=== PATIENT | male | born 1960 | race African-American/Black ===

== ENCOUNTER 2021-12-05 19:17 | Observation (INO) | payer OTHER, SELFPAY ==
[2021-12-05] VITALS (18 sets, daily range): BP systolic 91–129; BP diastolic 58–79; PULSE 68–97; RESP 13–23; TEMP 36.5–36.6; O2SAT 97–100; BMI 22.6
--- NOTE | ~2021-12-05 | XR_ITS ---
EXAMINATION: XR chest 1V portable DATE: 12/05/2021 19:34 INDICATION: Cough. TECHNIQUE: A single frontal view of the chest was obtained. COMPARISON: CT abdomen and pelvis 10/23/2018 FINDINGS: There are mild airspace opacities in the mid and lower lung zones. No pleural effusion or p neumothorax. Cardiomegaly is noted. IMPRESSION: 1. Mild airspace opacities in the mid and lower lung zones, consistent with mild pulmonary edema vers us atelectasis versus atypical pneumonia. 2. Cardiomegaly. Reviewed, dictated and finalized at location A. IMPRESSION: 1. Mild airspace opacities in the mid and lower lung zones, consistent with mil d pulmonary edema versus atelectasis versus atypical pneumonia. 2. Cardiomegaly.
--- NOTE | 2021-12-05 19:24 | ECG_ITS ---
Measurements Intervals [place] Rate: 66 P: 44 NV: 149 QRS: -5 QRSD: 102 T: 152 QT: 408 QTc: 429 Interpretive Statements SINUS RHYTHM POSSIBLE LEFT ATRIAL ENLARGEMENT [-0.1mV P-WAVE IN V1/V2] POSSIBLE ANTERIOR MYOCARDIAL INFARCTION , OF INDETERMINATE AGE [30 ms Q WAVE IN V3/V4, OR R < 0.2 mV IN V4] NONSPECIFIC T-WAVE ABNORMALITY ABNORMAL ECG COMPARED TO ECG 06/22/2018 13:14:53 NO SIGNIFICANT CHANGES Electronically Signed On 12-06-2021 9:35:35 CDT by Eben Cespedes M.D.
--- NOTE | 2021-12-05 19:42 | ED.GENADULT ---
HPI - General Adult General Chief complaint: Unspecified Stated complaint: pitting edema from waist down Time Seen by Provider: 12/05/21 19:24 Source: RN notes reviewed History of Present Illness HPI narrative: Patient presents emergency room from home via EMS for edema. Patient states he been having increasing edema in the bilateral lower extremities up to his waist for the past several days. 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 Patient states he was at a hospital yesterday in [place] but was discharged but cannot give any further history as the patient is a poor historian he denies any fevers or chills chest pain shortness of breath or any other symptoms Related Data Allergies Allergy/AdvReac Type Severity Reaction Status Date / Time No Known Allergies Allergy Verified 12/05/21 19:38 Review of Systems Review of Systems: Gen.: Denies fevers or chills ENT: Denies congestion Respiratory: Denies shortness of breath or cough CV: Denies chest pain or palpitations reports edema GI: Denies abdominal pain nausea, emesis or diarrhea Musculoskeletal: Denies back pain or muscle pain Neuro: Denies numbness, tingling, weakness or focal weakness Skin: Denies rash Except as documented, all other systems reviewed and negative PENDING SALE TO [facility] Past Medical History Medical History (Updated 12/05/21 @ 21:31 by Tanvir Arnold DO) CHF (congestive heart failure) Social History Social History (Updated 12/05/21 @ 21:29 by Tanvir Arnold DO) Smoking status: Never smoker Exam Narrative: APPEARANCE: No acute distress, nontoxic, resting in bed EYES: EOMI HEENT: Normocephalic, atraumatic, OMM RESPIRATORY: No respiratory distress Clear to auscultation bilaterally with no rhonchi wheezing or rales. CARDIOVASCULAR: Regular rate and rhythm without murmurs rubs or gallops. ABDOMINAL: Soft, nontender, nondistended, no rebound or guarding : Edema of the penile shaft there is no phimosis or paraphimosis erythema no scrotal erythema MUSCULOSKELETAl: Moves all extremities. No clubbing, cyanosis 4+ edema to bilateral lower extremities NEURO: Awake and alert. Following commands, speech normal, no focal deficits SKIN:: Warm, dry. No rashes lesions or abrasions PSYCHIATRIC: Normal affect/mood, Course Course Emergency Course: Discussed with Dr. Gross presentation work-up agrees with consult Discussed with Dr. Yao agrees with admission Attempted to obtain old records from [place] Discussed with patient and family results of workup and diagnosis. Discussed need for admission. Patient and family understand and agree to current treatment plan Carrying records from [facility] patient been admitted to the hospital from the through the for CHF he has a history of dilated cardiomyopathy also has a history of use of crack cocaine drug screen will be added will admit patient at this time Vital Signs Vital signs: Vital Signs Temperature 97.7 F 12/05/21 19:22 Pulse Rate 71 12/05/21 19:22 Respiratory Rate 13 12/05/21 19:22 Blood Pressure 100/71 12/05/21 19:22 Pulse Oximetry 100 12/05/21 19:22 Oxygen Delivery Room Air 12/05/21 19:22 Temperature 97.7 F 12/05/21 19:22 Pulse Rate 73 12/05/21 19:52 Respiratory Rate 16 12/05/21 19:52 Blood Pressure 106/79 12/05/21 21:02 Pulse Oximetry 99 12/05/21 19:52 Oxygen Delivery Room Air 12/05/21 19:22 Medical Decision Making Vital Signs Vital Signs: Vital Signs Temperature 97.7 F 12/05/21 19:22 Pulse Rate 71 12/05/21 19:22 Respiratory Rate 13 12/05/21 19:22 Blood Pressure 100/71 12/05/21 19:22 Pulse Oximetry 100 12/05/21 19:22 Oxygen Delivery Room Air 12/05/21 19:22 Temperature 97.7 F 12/05/21 19:22 Pulse Rate 73 12/05/21 19:52 Respiratory Rate 16 12/05/21 19:52 Blood Pressure 106/79 12/05/21 21:0
[2021-12-05 19:45] LABS: Basophils Percent Auto 0.3 % (0.2-1.2); Eosinophils Percent Auto 0.2 % (0-4.4); Hematocrit 33.1 % (42.0-52.0); Hemoglobin 10.2 g/dL (14.0-18.0); Immature Granulocyte Absolute 0.02 K/mm3 (0.00-0.031); Immature Granulocyte Percent A 0.3 % (0-0.5); Lymphocytes Absolute Auto 1.31 K/mm3 (0.9-3.2); Lymphocytes Percent Auto 20.5 % (18.3-44.2); Mean Corpuscular HGB Conc 30.8 g/dl (32-36); Mean Corpuscular Hemoglobin 24.9 pg (26-34); Mean Corpuscular Volume 80.9 fl (80-100); Mean Platelet Volume 10.1 fl (7.4-10.4); Monocytes Absolute Auto 0.5 K/mm3 (0.1-0.6); Monocytes Percent Auto 8.3 % (2.6-8.5); Neutrophils Absolute Auto 4.5 K/mm3 (1.3-6.7); Neutrophils Percent Auto 70.4 % (45.5-73.1); Platelet Count Result 222 k/mm3 (150-375); Red Blood Count 4.09 M/mm3 (4.6-6.20); Red Cell Distribution Width 16.1 % (11.5-14.5); White Blood Count 6.4 K/mm3 (4.5-10.0)
[2021-12-05 19:55] LABS: Alanine Aminotransferase 27 U/L (6-50); Albumin Level 3.4 g/dL (3.5-5.1); Alkaline Phosphatase 94 U/L (38-126); Anion Gap 5 mmol/L (8-16); Aspartate Amino Transferase 54 U/L (17-59); Bilirubin,Total 0.5 mg/dL (0.2-1.3); Blood Urea Nitrogen 38 mg/dL (9-20); Calcium 8.2 mg/dL (8.4-10.2); Carbon Dioxide 33 mmol/L (22-30); Chloride 96 mmol/L (98-107); Estimated CRCL calculation 74 ml/min; Estimated Glomerular Filt Rate > 60; Glucose 93 mg/dL (65-110); Potassium 4.3 mmol/L (3.4-5.0); Sodium 134 mmol/L (137-145)
[2021-12-05 19:57] LABS: INR 1.2; Prothrombin Time 15.1 Seconds (11.1-14.7)
[2021-12-05 19:58] LABS: Partial Thromboplastin Time 26.4 SECONDS (22.3-36.8)
[2021-12-05 20:17] LABS: NT Pro B Type Natriuretic Pept 2600 pg/mL (5-100); Troponin I 0.037 ng/mL (0.000-0.034)
[2021-12-05] MEDS: FUROSEMIDE INJ 40 MG/4 ML VIAL IV PUSH (21:20)
[2021-12-05] MEDS: ASPIRIN 81 MG CHEWABLE TABLET 324 MG PO (21:20)
[2021-12-05 22:31] LABS: Amphetamine Screen Urine Negative (Negative); Barbiturate Screen Urine Negative (Negative); Benzodiazepines Screen Urine Negative (Negative); Cannabinoid Screen Urine Positive (Negative); Cocaine Screen Urine Positive (Negative); Methadone Screen Urine Negative (Negative); Opiate Screen Urine Negative (Negative); Phencyclidine Screen Urine Negative (Negative)
[2021-12-05 23:52] LABS: SARS-CoV-2 RNA PCR Negative
--- NOTE | 2021-12-05 23:56 | ADMGEN ---
This patient, Niko Pearson, was admitted to IMU Room 205-02. Patient/family oriented to hospital policies and general routines including ID bracelet, bed and alarms, visiting hours, pain management, procedures, bathroom and other care routines, personal items, smoking policy, room service/diet, and visiting hours. Information on how to activate the Rapid Response Team has been discussed. Patient/Family are encouraged to report perceived risks to care and to ask questions if they do not understand what they are told or what they should do.
[2021-12-06] VITALS (17 sets, daily range): BP systolic 101–119; BP diastolic 50–81; PULSE 56–78; RESP 14–20; TEMP 36.4–36.7; O2SAT 97–100
--- NOTE | 2021-12-06 01:25 | ECHO_ITS ---
Patient Info Name: Niko Cox Michel Age: 61 years : 1960 Gender: Male Ht: 72 in Wt: 167 lbs BSA: 1.96 m2 HR: 62 bpm BP: 101 / 75 mmHg Heart Rhythm: Sinus Rhythm Technical Quality: Good Exam Date: 12/06/2021 1:42 PM Exam Location: [facility] Patient Status: Outpatient Admit Date: 12/05/2021 Staff Ordering Physician: Ricardo Yao DO Commissioning Editor: Peggy Elaine RDCS Attending Provider: Ricardo Yao DO Exam Type: CA echo doppler color flow Study Info Indications I50.9 - Heart failure, unspecified Complete two-dimensional, color flow and Doppler transthoracic echocardiogram is performed. Summary 1. Complete two-dimensional, color flow and Doppler transthoracic echocardiogram is performed. 2. Left ventricular chamber dimension is moderately enlarged. 3. Left ventricular systolic function is severely reduced, estimated at 25-30%. 4. There is no increased left ventricular wall thickness. 5. The left ventricular diastolic function is grade III diastolic dysfunction. 6. The inferior wall, anterior wall, inferoseptal wall, anterolateral wall, anteroseptal wall, and inferolateral wall are hypokinetic. 7. The apical cap is dyskinetic. 8. Right ventricular chamber dimension is mildly enlarged. 9. Right ventricular systolic function is reduced. 10. Left atrial chamber dimension is moderately enlarged. 11. Right atrial chamber dimension is moderately enlarged. 12. There is moderate mitral valve regurgitation. 13. Moderate pulmonary hypertension, estimated pulmonary arterial systolic pressure is 50 mmHg. 14. There is moderate tricuspid valve regurgitation. 15. There is small pericardial effusion. Left Ventricle Left ventricular chamber dimension is moderately enlarged. Left ventricular systolic function is severely reduced, estimated at 25-30%. There is no increased left ventricular wall thickness. The left ventricular diastolic function is grade III diastolic dysfunction. The inferior wall, anterior wall, inferoseptal wall, anterolateral wall, anteroseptal wall, and inferolateral wall are hypokinetic. The apical cap is dyskinetic. Right Ventricle Right ventricular chamber dimension is mildly enlarged. Right ventricular systolic function is reduced. Left Atria Left atrial chamber dimension is moderately enlarged. Right Atria Right atrial chamber dimension is moderately enlarged. Atrial Septum Intact interatrial septum visualized by color flow imaging. Aortic Valve The aortic valve is trileaflet. There is no aortic valve sclerosis. There is no aortic valve stenosis. There is trace aortic valve regurgitation. Pulmonic Valve The pulmonic valve is normal. There is no pulmonic valve stenosis. There is trace pulmonic regurgitation. Mitral Valve The mitral valve has thickened leaflets. There is no mitral valve stenosis. There is moderate mitral valve regurgitation. Tricuspid Valve The tricuspid valve leaflets are normal. There is no significant tricuspid valve stenosis. There is moderate tricuspid valve regurgitation. Moderate pulmonary hypertension, estimated pulmonary arterial systolic pressure is 50 mmHg. Pericardium/Pleural The pericardium appears normal. There is small pericardial effusion. Inferior Vena Cava Dilated inferior vena cava with <50% collapse upon inspiration consistent with elevated right atrial pressure, 15 mmHg. Aorta The aortic root size at the sinus of Valsalva is normal. The prox ascending aorta
[2021-12-06 01:28] LABS: Troponin I 0.039 ng/mL (0.000-0.034)
--- NOTE | 2021-12-06 01:29 | PM.IMHP ---
H&P: [facility] History of Present Illness Date/Time: 12/06/21 01:29 Chief Complaint: Lower extremity edema, dyspnea on exertion Narrative: Greater than 30 minutes spent reviewing chart, evaluating, treating, counseling patient. Anticipate less than 48 hour admission, will admit under observation. 61-year-old male past medical history of cocaine abuse, CHF, Crohn's disease, homelessness. Presents with worsening lower extremity edema for the past week. Patient also reports dyspnea on exertion as well as orthopnea. Patient is unreliable historian, however states he does have CHF and is supposed to be taking Lasix. He states he tries to take his medications regularly, however does miss doses. Of note, patient is homeless and does not follow with the PCP or toe pounder. Patient reports he last used cocaine yesterday. He also reports he ?passed out? this morning while trying to go to the bathroom. States when he came to he was covered in urine and feces. Denies biting his tongue or hitting his head. Does not have a history of seizures. States when he came to he knew where he was and what was going on. Patient denies history of diabetes. In ED, patient's vitals stable. Labs remarkable for initial troponin 0.037 send a BNP of 2600. Patient denies any chest pain. EKG showed normal sinus rhythm, left atrial enlargement, poor R-wave progression. Chest x-ray showing enlarged heart with mild vascular congestion. Other labs remarkable for hemoglobin of 10.2, MCV 80. Patient given dose of IV Lasix 40 mg and aspirin. Review of Systems Review of Systems: Ten point review of systems obtained, negative unless otherwise specified per [facility] Past Medical History Medical History (Updated 12/06/21 @ 01:50 by Ricardo Yao DO) CHF (congestive heart failure) Family History Family History (Updated 12/05/21 @ 23:41 by Thu Her RN) Other Unknown family medical history Social History Social History (Updated 12/05/21 @ 21:29 by Tanvir Arnold DO) Smoking status: Never smoker Second hand tobacco smoke exposure: No Alcohol intake: never Substance use: current Substance use type: marijuana and crack/cocaine Spiritual care concerns: No Meds Home Medications and Allergies Home Medications Medication Instructions Recorded Confirmed Type aspirin 81 mg tablet,delayed 81 mg PO DAILY 12/05/21 12/05/21 History release atorvastatin 40 mg tablet 40 mg PO HS 12/05/21 12/05/21 History carvedilol 25 mg tablet 25 mg PO BID 12/05/21 12/05/21 History empagliflozin 10 mg tablet 10 mg PO DAILY 12/05/21 12/05/21 History (Jardiance) furosemide 20 mg tablet 40 mg PO DAILY 12/05/21 12/05/21 History losartan 50 mg tablet 50 mg PO DAILY 12/05/21 12/05/21 History spironolactone 25 mg tablet 25 mg PO DAILY 12/05/21 12/05/21 History Allergies Allergy/AdvReac Type Severity Reaction Status Date / Time No Known Allergies Allergy Verified 12/05/21 19:38 Vital Signs Vital Signs - 24 hr 12/05/21 19:22 12/05/21 19:37 12/05/21 19:52 Temperature 97.7 F Pulse Rate 71 77 73 Respiratory Rate 13 16 Blood Pressure 100/71 Pulse Oximetry 100 99 Oxygen Delivery Room Air 12/05/21 20:31 12/05/21 21:02 12/05/21 23:03 Temperature Pulse Rate 72 Respiratory Rate 17 Blood Pressure 91/58 L 106/79 97/64 L Pulse Oximetry 100 Oxygen Delivery 12/05/21 21:30 12/05/21 21:31 12/05/21 22:06 Temperature Pulse Rate 71 71 68 Respiratory Rate 14 14 14 Blood Pressure 102/76 Pulse Oximetry 97 97 Oxygen Delivery 12/05/21 22:15 12/05/21 22:30 12/05/21 22:31 Temperature Pulse Rate 69 69 69 Respiratory Rate 15 13 13 Blood Pressure 96/61 L Pulse Oximetry Oxygen Delivery 12/05/21 22:45 12/05/21 23:00 12/05/21 23:01 Temperature Pulse Rate 71 71 76 Respiratory Rate 23 H 13 19 Blood Pressure 97/64 L Pulse Oximetry Oxygen Delivery 12/05/21 23:23 12/05/21 23:45
[2021-12-06 03:32] LABS: Basophils Percent Auto 0.5 % (0.2-1.2); Eosinophils Percent Auto 0.5 % (0-4.4); Hematocrit 32.4 % (42.0-52.0); Hemoglobin 10.1 g/dL (14.0-18.0); Immature Granulocyte Absolute 0.01 K/mm3 (0.00-0.031); Immature Granulocyte Percent A 0.2 % (0-0.5); Lymphocytes Absolute Auto 1.92 K/mm3 (0.9-3.2); Lymphocytes Percent Auto 29.3 % (18.3-44.2); Mean Corpuscular HGB Conc 31.2 g/dl (32-36); Mean Corpuscular Hemoglobin 24.9 pg (26-34); Mean Platelet Volume 9.6 fl (7.4-10.4); Monocytes Absolute Auto 0.5 K/mm3 (0.1-0.6); Monocytes Percent Auto 7.9 % (2.6-8.5); Neutrophils Percent Auto 61.6 % (45.5-73.1); Platelet Count Result 195 k/mm3 (150-375); Red Blood Count 4.05 M/mm3 (4.6-6.20); Red Cell Distribution Width 16.1 % (11.5-14.5); White Blood Count 6.6 K/mm3 (4.5-10.0)
[2021-12-06 03:40] LABS: Hemoglobin A1C 6.1 % (<5.7)
[2021-12-06 03:45] LABS: Anion Gap 6 mmol/L (8-16); Blood Urea Nitrogen 39 mg/dL (9-20); Calcium 8.2 mg/dL (8.4-10.2); Carbon Dioxide 29 mmol/L (22-30); Chloride 96 mmol/L (98-107); Estimated CRCL calculation 74 ml/min; Estimated Glomerular Filt Rate > 60; Glucose 123 mg/dL (65-110); Iron 18 ug/dL (49-181); Potassium 3.8 mmol/L (3.4-5.0); Sodium 131 mmol/L (137-145)
[2021-12-06 03:54] LABS: Percent Iron Saturation 4 % (20-50)
[2021-12-06 04:08] LABS: Troponin I 0.042 ng/mL (0.000-0.034)
[2021-12-06 04:44] LABS: Free T4 Free Thyroxine Reflex 0.84 ng/dL (0.78-2.19)
[2021-12-06 04:52] LABS: Folic Acid 11.9 ng/mL (2.76->20)
[2021-12-06 05:48] LABS: Total Triiodothyronine (T3) 0.65 NG/ML (0.97-1.69)
[2021-12-06] MEDS: ASPIRIN 81 MG CHEWABLE TABLET PO (09:23)
[2021-12-06] MEDS: ENOXAPARIN 40 MG/0.4 ML SYRINGE SUB-Q (09:24)
[2021-12-06] MEDS: FUROSEMIDE INJ 40 MG/4 ML VIAL IV PUSH ×2 (09:24→17:28)
--- NOTE | 2021-12-06 11:41 | PM.CNCAR ---
Assessment and Plan Assessment and plan (1) Elevated troponin: Code(s): R77.8 - Other specified abnormalities of plasma proteins Status: Acute Assessment and Plan: Probably secondary to combination of heart failure and cocaine use (2) CHF (congestive heart failure): Code(s): I50.9 - Heart failure, unspecified Status: Acute Assessment and Plan: Probably systolic in etiology although cannot exclude diastolic at this point. Will order 2D echocardiogram with Doppler. Continue IV diuresis. Add losartan plus minus spironolactone and Jardiance as BP will tolerate. At this point will avoid beta-alexx due to his cocaine use (3) Cocaine abuse: Code(s): F14.10 - Cocaine abuse, uncomplicated Status: Acute Assessment and Plan: Substance abuse counseling performed. (4) Microcytic anemia: Code(s): D50.9 - Iron deficiency anemia, unspecified Status: Acute History of Present Illness History of Present Illness Consult date/time: 12/06/21 11:41 Requesting physician: Ricardo Yao DO Consult reason: congestive heart failure Reason For Visit: CHF, elevated troponin Narrative: Reason for consultation: CHF, elevated troponin Date of service 12/06/2021 Requesting physician: Dr. Yao History patient is a 61-year-old male who has history of cocaine use CHF Crohn's disease homelessness who presented hospital because of worsening lower extremity edema. He also does describe some shortness of breath. He denies any chest pain. He also states that while in the bathroom at the gas station he possibly passed out while going to the bathroom. He admits using cocaine yesterday. He was covered in urine and feces whenever he woke up. He came to hospital for further evaluation and has had no significant bradycardia. Echocardiogram is pending. BNP is mildly elevated as are his troponins. He actually denies any chest pain at this point, paroxysmal nocturnal dyspnea, orthopnea, shortness of breath, palpitations. His edema is improved Review of Systems Review of Systems: All systems reviewed & are unremarkable except as noted in HPI and below Constitutional: Constitutional: Denies body ache(s) Eyes: Eyes: Denies blurry vision ENT: Reports Normal hearing present Cardiovascular: Cardiovascular: Denies chest pain, Denies diaphoresis, Reports pedal edema and Reports leg edema Respiratory: Respiratory: Denies chest congestion and Denies cough Gastrointestinal: Gastrointestinal: Denies abdominal pain and Denies diarrhea Genitourinary: Genitourinary: Denies hematuria and Denies dysuria Musculoskeletal: Musculoskeletal: Denies back pain and Denies myalgias Integumentary/Breasts: Skin/Breast: Denies dry skin Neurologic: Denies Abnormal speech present Psychiatric: Psychiatric: Denies anxiety Endocrine: Endocrine: Denies excessive sweating and Denies fatigue Hematologic/Lymphatic: Hematologic/Lymphatic: Denies easy bleeding Allergic/Immunologic: Allergic/Immunologic: Denies GI upset with certain foods PMFSH Past Medical History Medical History CHF (congestive heart failure) Family History Family History (Updated 12/06/21 @ 11:44 by Eben Cespedes MD) Father Drowning Other Unknown family medical history Social History Social History Smoking status: Never smoker Second hand tobacco smoke exposure: No Alcohol intake: never Substance use: current Substance use type: marijuana and crack/cocaine Spiritual care concerns: No Meds Home Medications and Allergies Home Medications Medication Instructions Recorded Confirmed Type aspirin 81 mg tablet,delayed 81 mg PO DAILY 12/05/21 12/05/21 History release atorvastatin 40 mg tablet 40 mg PO HS 12/05/21 12/05/21 History carvedilol 25 mg tablet 25 mg PO BID 12/05/21 12/05/21 Hist
--- NOTE | 2021-12-06 15:13 | PM.IMPN ---
Progress Note: A&P Assessment and Plan (1) CHF (congestive heart failure): Code(s): I50.9 - Heart failure, unspecified Status: Acute Assessment and Plan: Patient with a acute on chronic systolic and diastolic CHF exacerbation echo showing EF of 25-30% with grade 3 diastolic dysfunction and multiple areas of hypokinesis and dyskinesis. He has moderate mitral regurgitation moderate pulmonary hypertension. Patient has been started on diuretic therapy with good results. Cardiology consulted. Beta-alexx on hold due to his cocaine use. Will hold on resuming losartan at this time in case patient is going to be moved to [facility]. Will continue to hold spironolactone givne the soft BP. Continue statin and aspirin. (2) Elevated troponin: Code(s): R77.8 - Other specified abnormalities of plasma proteins Status: Acute Assessment and Plan: Troponin mildly elevated flat. No complaints of chest pain. No EKG changes to suggest acute ischemia. Suspect elevated troponins related to CHF exacerbation. Consider also elevated troponins related to cocaine abuse. (3) Cocaine abuse: Code(s): F14.10 - Cocaine abuse, uncomplicated Status: Acute Assessment and Plan: Urine drug screen is positive for cocaine and marijuana. He was educated about the benefits of standing from drug use. (4) Microcytic anemia: Code(s): D50.9 - Iron deficiency anemia, unspecified Status: Acute Assessment and Plan: Microcytic anemia noted on admission. Iron studies consistent with iron deficiency. Will start iron. Suspect related to mild chronic blood loss from his Crohn's that is untreated. (5) Syncope: Code(s): R55 - Syncope and collapse Status: Acute Assessment and Plan: Patient stated he passed out on the morning of admission. No symptoms to suggest seizure. He does not have a history of seizures. It did not appear that he had post ictal confusion. Consider cardiac dysrhythmia given that he was using cocaine the day before. No significant findings on telemetry at this time. Continue to monitor on telemetry. Echo as mentioned above. Subjective Date/time seen: 12/06/21 15:13 Interval history: 61yo male with hx of cocaine abuse, CHF and Crohns here for bilateral leg edema Patient denies any chest pain. His bilateral lower extremities still feel tight. He denies any abdominal pain. No shortness of breath. No nausea or vomiting. No diarrhea. Exam Narrative: AF 98.0 107/81 70 16 100% ra Gen - NARD Chest - CTA bilaterally, nml RR CV - RRR S1/S2. 2/6 murmur loudest at the apex Tele showing PVCs. Abd - Soft, NT/ND, Positive BS Ext - 1+ pedal edema Psych - Nml mood and affect Skin - Warm and dry Objective Data Vital Signs Vital Signs: Vital Signs - 24 hr 12/05/21 19:22 12/05/21 19:37 12/05/21 19:52 Temperature 97.7 F Pulse Rate 71 77 73 Respiratory Rate 13 16 Blood Pressure 100/71 Pulse Oximetry 100 99 Oxygen Delivery Room Air 12/05/21 20:31 12/05/21 21:02 12/05/21 23:03 Temperature Pulse Rate 72 Respiratory Rate 17 Blood Pressure 91/58 L 106/79 97/64 L Pulse Oximetry 100 Oxygen Delivery 12/05/21 21:30 12/05/21 21:31 12/05/21 22:06 Temperature Pulse Rate 71 71 68 Respiratory Rate 14 14 14 Blood Pressure 102/76 Pulse Oximetry 97 97 Oxygen Delivery 12/05/21 22:15 12/05/21 22:30 12/05/21 22:31 Temperature Pulse Rate 69 69 69 Respiratory Rate 15 13 13 Blood Pressure 96/61 L Pulse Oximetry Oxygen Delivery 12/05/21 22:45 12/05/21 23:00 12/05/21 23:01 Temperature Pulse Rate 71 71 76 Respiratory Rate 23 H 13 19 Blood Pressure 97/64 L Pulse Oximetry Oxygen Delivery 12/05/21 23:23 12/05/21 23:45 12/05/21 23:55 Temperature 97.9 F Pulse Rate 97 74 72 Respiratory Rate 20 Blood Pressure 129/76 Pulse Oximetry 99 Oxygen Delivery
[2021-12-06] MEDS: FERROUS SULFATE 324 MG TABLET PO (17:28)
[2021-12-06] MEDS: ATORVASTATIN 40 MG TABLET PO (20:21)
[2021-12-07] VITALS (9 sets, daily range): BP systolic 107–115; BP diastolic 52–86; PULSE 68–87; RESP 12–20; TEMP 36.4–36.7; O2SAT 97–100
[2021-12-07 05:54] LABS: Anion Gap 6 mmol/L (8-16); Blood Urea Nitrogen 29 mg/dL (9-20); Carbon Dioxide 32 mmol/L (22-30); Chloride 93 mmol/L (98-107); Estimated CRCL calculation 81 ml/min; Estimated Glomerular Filt Rate > 60; Glucose 102 mg/dL (65-110); Potassium 3.4 mmol/L (3.4-5.0); Sodium 131 mmol/L (137-145)
[2021-12-07 06:10] LABS: Basophils Percent Auto 0.3 % (0.2-1.2); Eosinophils Percent Auto 0.5 % (0-4.4); Hematocrit 33.3 % (42.0-52.0); Hemoglobin 10.3 g/dL (14.0-18.0); Immature Granulocyte Absolute 0.02 K/mm3 (0.00-0.031); Immature Granulocyte Percent A 0.3 % (0-0.5); Lymphocytes Absolute Auto 2.08 K/mm3 (0.9-3.2); Lymphocytes Percent Auto 31.5 % (18.3-44.2); Mean Corpuscular HGB Conc 30.9 g/dl (32-36); Mean Corpuscular Hemoglobin 25.1 pg (26-34); Mean Platelet Volume 10.8 fl (7.4-10.4); Monocytes Absolute Auto 0.8 K/mm3 (0.1-0.6); Monocytes Percent Auto 12.3 % (2.6-8.5); Neutrophils Absolute Auto 3.7 K/mm3 (1.3-6.7); Neutrophils Percent Auto 55.1 % (45.5-73.1); Platelet Count Result 231 k/mm3 (150-375); Red Blood Count 4.11 M/mm3 (4.6-6.20); Red Cell Distribution Width 16.1 % (11.5-14.5); White Blood Count 6.6 K/mm3 (4.5-10.0)
[2021-12-07] MEDS: ENOXAPARIN 40 MG/0.4 ML SYRINGE SUB-Q (08:25)
[2021-12-07] MEDS: POTASSIUM CHLORIDE 20 MEQ TABLET 40 MEQ PO (08:25)
[2021-12-07] MEDS: ASPIRIN 81 MG CHEWABLE TABLET PO (08:25)
[2021-12-07] MEDS: FUROSEMIDE INJ 40 MG/4 ML VIAL IV PUSH (08:25)
[2021-12-07] MEDS: FERROUS SULFATE 324 MG TABLET PO (08:25)
--- NOTE | 2021-12-07 10:39 | PM.PNCARD ---
Progress Note: A&P Assessment and Plan (1) CHF (congestive heart failure): Code(s): I50.9 - Heart failure, unspecified Status: Acute Plan This is a 61-year-old man with: Chronic systolic heart failure unfortunately with history of drug abuse and homelessness. I would agree that his medical regimen would obviously be advanced from losartan to Entresto and I will go ahead and start that today. I would stop the IV furosemide and go back to his previous furosemide regimen. Beta-alexx is being held because of his active cocaine use. The patient tells me that he is anticipating being picked up by family murmurs and taken to [facility] where he plans to reside for a period of time. His long-term prognosis is obviously very poor as he has very poor healthcare insight, active drug abuse and is going to a community where he has no medical care established. Deo Meadows MD [facility] Subjective Date/time seen: Date of service: 12/07/21 10:39 Interval history: Follow-up visit in this 61-year-old man with: Congestive heart failure with dilated systolic cardiomyopathy. Patient with questionable compliance with this medication also with active drug abuse including cocaine use. Patient is relatively comfortable today he says he is no longer having any shortness of breath and is expecting for a family member to pick him up this afternoon and take him to [facility] for a family event and he plans to reside there for the for see below future. He does not have any medical care/follow-up established in that community. Exam Const: General: comfortable and no acute distress Other: Well-developed well-nourished black male no distress of any kind HENMT: Mouth: Yes moist mucous membranes Eyes: Sclera: sclerae normal Neck: Neck: supple and no JVD Resp: Effort & Inspection: normal respiratory effort Auscultation: clear to auscultation bilaterally Other: No pulmonary rales are audible Cardio: Rate: regular rate Rhythm: regular rhythm Other: PMI is enlarged not significantly displaced no murmur S3 is audible GI: GI Palp: Yes Soft to palpation Auscultation: normal bowel sounds Skin: General skin exam: normal color Neuro: Other: Alert and oriented Extrem: Other: Trivial pretibial edema at this time Objective Data Vital Signs Vital Signs: Vital Signs - 24 hr 12/06/21 12:00 12/06/21 12:00 12/06/21 12:02 Temperature 36.7 C Pulse Rate 59 L 59 L 68 Respiratory Rate 16 Blood Pressure 102/70 102/70 107/75 Pulse Oximetry 100 Oxygen Delivery 12/06/21 12:04 12/06/21 12:00 12/06/21 12:00 Temperature Pulse Rate 71 70 Respiratory Rate Blood Pressure 107/81 Pulse Oximetry 100 Oxygen Delivery Room Air 12/06/21 14:00 12/06/21 16:00 12/06/21 16:00 Temperature 36.4 C Pulse Rate 70 70 78 Respiratory Rate 14 Blood Pressure 108/79 Pulse Oximetry 100 Oxygen Delivery 12/06/21 18:00 12/06/21 16:00 12/06/21 19:46 Temperature 36.7 C Pulse Rate 75 66 Respiratory Rate 18 Blood Pressure 115/69 Pulse Oximetry 100 97 Oxygen Delivery Room Air 12/06/21 20:00 12/06/21 20:00 12/06/21 21:18 Temperature Pulse Rate 72 72 78 Respiratory Rate 18 Blood Pressure Pulse Oximetry 97 Oxygen Delivery Room Air 12/06/21 23:56 12/07/21 00:00 12/07/21 00:00 Temperature 36.6 C Pulse Rate 66 76 76 Respiratory Rate 20 20 Blood Pressure 119/50 L Pulse Oximetry 97 97 Oxygen Delivery Room Air 12/07/21 04:00 12/07/21 02:00 12/07/21 04:00 Temperature 36.7 C Pulse Rate 70 68 72 Respiratory Rate 18 Blood Pressure 107/52 L Pulse Oximetry 99 Oxygen Delivery 12/07/21 04:00 12/07/21 05:55 12/07/21 07:50 Temperature Pulse Rate 72 72 Respiratory Rate 18 Blood Pressure Pulse Oximetry 99 Oxygen Delivery Room Air Room Air 12/07/21 07:54 12/07/21 08:00 12/07/21 10:00 Temperature 36.4 C L P
--- NOTE | 2021-12-07 12:40 | PM.DS ---
DS: Admitting Diagnosis Discharge Date 12/07/21 Admitting Diagnosis Lower extremity edema, dyspnea on exertion DS: Discharge Diagnosis Discharge Diagnosis (1) CHF (congestive heart failure): Code(s): I50.9 - Heart failure, unspecified Status: Acute (2) Elevated troponin: Code(s): R77.8 - Other specified abnormalities of plasma proteins Status: Acute (3) Cocaine abuse: Code(s): F14.10 - Cocaine abuse, uncomplicated Status: Acute (4) Microcytic anemia: Code(s): D50.9 - Iron deficiency anemia, unspecified Status: Acute (5) Syncope: Code(s): R55 - Syncope and collapse Status: Acute DS: Summary Hospital Course Reason for hospitalization: 61yo male with hx of cocaine abuse, CHF and Crohns here for bilateral leg edema. Please see H&P details. Hospital Course: Patient with a acute on chronic systolic and diastolic CHF exacerbation echo showing EF of 25-30% with grade 3 diastolic dysfunction and multiple areas of hypokinesis and dyskinesis. He has moderate mitral regurgitation, moderate pulmonary hypertension. Patient was started on IV diuretic therapy with good results. Cardiology consulted. Beta-alexx on hold due to his cocaine use. We held losartan and patient moved to [facility]. Will continue to hold spironolactone given the soft BP. We continued statin and aspirin. Troponin mildly elevated but flat. No complaints of chest pain.? No EKG changes to suggest acute ischemia.? Suspect elevated troponins related to CHF exacerbation.? Consider also elevated troponins related to cocaine abuse. Urine drug screen is positive for cocaine and marijuana.? He was educated about the benefits of abstaining from drug use. Microcytic anemia noted on admission.? Iron studies consistent with iron deficiency.? We started iron.?Did not order stool guaiac because probably positive and suspect related to mild chronic blood loss from his Crohn's that is untreated. Patient stated he passed out on the morning of admission.? No symptoms to suggest seizure.? He does not have a history of seizures.? It did not appear that he had post ictal confusion.? Consider cardiac dysrhythmia given that he was using cocaine the day before but no abnormal cardiac rhythms.?Patieint had an excellent diuresis. He clinically feels much better. He overall did well and was able to be discharged on 12/07/21. He is being picked up by his family so he can attend the of his nephew who committed suicide. Condolences were given. He is going to the boot he will of meds early. Encouraged him to find a primary care doctor so as his medications do not lapse if he plans to stay in that area for prolonged period Status at Discharge Cognitive/behavioral status at discharge: Stable Time Spent with Patient Time attestation: Total time spent providing and/or coordinating discharge services: 38 minutes Time spent: Greater than 30 minutes Exam Narrative: AF 97.7 115/57 69 12 100% ra Gen - NARD Chest - CTA bilaterally, nml RR CV - RRR S1/S2 Abd - Soft, NT/ND, Positive BS Ext - trace pedal edema Psych - Nml mood and affect Skin - Warm and dry DS: Data Data Completed and Pending Labs on day of discharge: Labs from last 24 hours 12/07/21 12/07/21 04:11 04:11 WBC 6.6 RBC 4.11 L Hgb 10.3 L Hct 33.3 L MCV 81.0 MCH 25.1 L MCHC 30.9 L RDW 16.1 H Plt Count 231 MPV 10.8 H Immature Gran % (Auto) 0.3 Neut % (Auto) 55.1 Lymph % (Auto) 31.5 Smyth % (Auto) 12.3 H Eos % (Auto) 0.5 Baso % (Auto) 0.3 Lymph # (Auto) 2.08 Smyth # (Auto) 0.8 H Eos # (Auto) 0.0 Baso # (Auto) 0.0 Abs Immat Gran (auto) 0.02 Absolute Neuts (auto) 3.7 Absolute Nucleated RBC 0.0 Nucleated RBC % 0.0 Sodium 131 L Potassium 3.4 Chloride 93 L Carbon Dioxide 32 H Anion Gap 6 L BUN 29 H D Creatinine 0.90 Estim Creat Clear Calc 81 Estimated GFR > 60 Gluco
--- NOTE | 2021-12-07 13:13 | PCPTNOTE ---
received orders for PT evaluation; discussed pt with Polo GARCIA; talked with pt, he was up and walking in his room indep, and stated he was leaving as soon as his ride gets here. Said he did not need any therapy. evaluation not performed.
[2021-12-07 20:14] LABS: Magnesium 2.1 mg/dL (1.6-2.3); Phosphorus 3.6 mg/dL (2.5-4.5)
== END 2021-12-07 13:17 | disposition home or self-care (01) ==
LOC: ANHED 21:31 → ANHIMU 23:44
PROVIDERS: Admitting Provider Internal Medicine; Emergency Provider Emergency Medicine; PCP Emergency Medicine; Visit Provider Internal Medicine
DX: I50.43 Acute on chronic combined systolic (congestive) and diastolic (congestive) heart failure (principal); R77.8 Other specified abnormalities of plasma proteins; F14.10 Cocaine abuse, uncomplicated; D50.9 Iron deficiency anemia, unspecified; R55 Syncope and collapse; I08.1 Rheumatic disorders of both mitral and tricuspid valves; I31.3 Pericardial effusion (noninflammatory); I27.20 Pulmonary hypertension, unspecified; R94.31 Abnormal electrocardiogram [ECG] [EKG]; R94.2 Abnormal results of pulmonary function studies; K50.90 Crohn's disease, unspecified, without complications; F12.90 Cannabis use, unspecified, uncomplicated; R06.01 Orthopnea; Z20.822 Contact with and (suspected) exposure to COVID-19; Z59.00 Homelessness unspecified; Z79.82 Long term (current) use of aspirin; Z79.84 Long term (current) use of oral hypoglycemic drugs; Z79.899 Other long term (current) drug therapy
CPT/HCPCS: 36415; 71045; 80048; 80053; 80307; 82607; 82728; 82746; 83036; 83540; 83550; 83735; 83880; 84100; 84439; 84443; 84480; 84484; 85025; 85610; 85730; 93005; 93306; 96372; 96374; 96376; 99285; A9270; C9803; G0378; G0379; J1650; J1940; U0003; U0005

== ENCOUNTER 2022-01-29 16:33 | Inpatient (IN) | payer OTHER, SELFPAY ==
[2022-01-29] VITALS (11 sets, daily range): BP systolic 113–136; BP diastolic 86–109; PULSE 80–97; RESP 14–21; TEMP 36–36.6; O2SAT 93–100; BMI 25.0
--- NOTE | ~2022-01-29 | US_ITS ---
EXAMINATION: US venous doppler [facility] DATE: 01/30/2022 07:44 INDICATION: Chest pain. TECHNIQUE: Grayscale ultrasound images without and with compression and Doppler ultrasound images of the bilateral lower extremity veins were obtained. COMPARISON: None. FINDINGS: The visualized portions of right common femoral vein, profunda (deep) femoral vein, femoral vein, pop liteal vein, peroneal veins, posterior tibial veins, and greater saphenous vein outflow are patent. The visualized portions of left common femoral vein, profunda femoral vein, femoral vein, popliteal v ein, peroneal veins, posterior tibial veins, and greater saphenous vein outflow are patent. IMPRESSION: 1. No deep venous thrombosis. Reviewed, dictated and finalized at location A.
--- NOTE | ~2022-01-29 | XR_ITS ---
EXAMINATION: XR chest 2V DATE: 01/30/2022 07:48 INDICATION: Chest pain. TECHNIQUE: Frontal and lateral views of the chest were obtained. COMPARISON: Chest CT 01/29/2022 FINDINGS: There is no pneumonia, pleural effusion, or pneumothorax. Cardiomegaly is noted. IMPRESSION: 1. Cardiomegaly. Reviewed, dictated and finalized at location A. IMPRESSION: 1. Cardiomegaly.
--- NOTE | ~2022-01-29 | CT_ITS ---
EXAMINATION: CTA chest PE protocol DATE: 01/29/2022 19:52 INDICATION: chest pain, elevated d dimer TECHNIQUE: Computed tomography angiography (CTA) of the chest was performed with 100 mL Omnipaque-350 intravenous contrast timed to evaluate the pulmonary arteries. Coronal maximum intensity projection 3D-reconstructions were created by the technologist. The dose-length product (DLP) was 388.27 mGy-cm. Automated exposure control and iterative reconstruction technique were employed. COMPARISON: X-ray chest, 12/05/2021. CT abdomen and pelvis 10/23/2018. FINDINGS: Lung parenchyma and airways: Clear. Pleura: Unremarkable. Thoracic inlet, axillae and chest wall: Significant subcutaneous edema throughout the thorax. Thoracic aorta: Mild arch calcification. Mediastinum: Normal. Heart and pericardium: Cardiomegaly due to right atrial and right ventricular enlargement. Coronary artery calcifications: Mild. Upper abdomen: Considerable hepatic vein and IVC contrast reflux Moderate volume ascites. Bones: No acute osseous finding. Pulmonary arteries: Study quality: Adequate. No pulmonary emboli detected. IMPRESSION: No CT evidence of acute pulmonary embolus. Severe right heart failure, possibly with a component of t ricuspid regurgitation. Reviewed, dictated and finalized at location K. IMPRESSION: No CT evidence of acute pulmonary embolus. Severe right heart failure, possibly with a component of tricuspid regurgitation.
--- NOTE | ~2022-01-29 | CT_ITS ---
EXAMINATION: CT brain wo con INDICATION: Head injury COMPARISON: None TECHNIQUE: Standard unenhanced head CT. The dose-length product (DLP) was 605.33 mGy-cm. The mA was a djusted according to patient size. Iterative reconstruction technique was employed. FINDINGS: There is no acute intraparenchymal hemorrhage. No evidence of mass lesion. No evidence of a cute infarction. There is mild periventricular and subcortical hypodensity probably related to small vessel ischemic disease. There is mild prominence of the sulci and ventricles related to cerebral atr ophy. Intracranial calcified cerebral atherosclerosis is noted. There are no extra-axial collections. There is no mass effect or midline shift. The orbits and soft tissues are unremarkable. The visualiz ed sinuses and mastoid air cells are well aerated. IMPRESSION: 1. No acute intracranial abnormality. 2. Age related findings. Reviewed, dictated and finalized at location A.
--- NOTE | 2022-01-29 16:37 | ECG_ITS ---
Measurements Intervals Markle Rate: 79 P: 66 MT: 151 QRS: 14 QRSD: 98 T: 0 QT: 381 QTc: 437 Interpretive Statements SINUS RHYTHM POSSIBLE LEFT ATRIAL ENLARGEMENT [-0.1mV P-WAVE IN V1/V2] NONSPECIFIC T-WAVE ABNORMALITY COMPARED TO ECG 12/05/2021 19:41:23 NO SIGNIFICANT CHANGES Electronically Signed On 01-30-2022 14:49:08 CDT by Hema Amaya M.D.
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
[2022-01-29 18:07] LABS: Basophils Percent Auto 0.4 % (0.2-1.2); Hemoglobin 12.5 g/dL (14.0-18.0); Immature Granulocyte Absolute 0.02 K/mm3 (0.00-0.031); Immature Granulocyte Percent A 0.4 % (0-0.5); Lymphocytes Absolute Auto 1.48 K/mm3 (0.9-3.2); Lymphocytes Percent Auto 28.5 % (18.3-44.2); Mean Corpuscular HGB Conc 31.3 g/dl (32-36); Mean Corpuscular Hemoglobin 25.8 pg (26-34); Mean Corpuscular Volume 82.5 fl (80-100); Monocytes Absolute Auto 0.5 K/mm3 (0.1-0.6); Monocytes Percent Auto 9.6 % (2.6-8.5); Neutrophils Absolute Auto 3.2 K/mm3 (1.3-6.7); Neutrophils Percent Auto 61.1 % (45.5-73.1); Platelet Count Result 166 k/mm3 (150-375); Red Blood Count 4.85 M/mm3 (4.6-6.20); Red Cell Distribution Width 22.5 % (11.5-14.5); White Blood Count 5.2 K/mm3 (4.5-10.0)
[2022-01-29 18:17] LABS: Alanine Aminotransferase 33 U/L (6-50); Albumin Level 3.8 g/dL (3.5-5.1); Alkaline Phosphatase 84 U/L (38-126); Anion Gap 10 mmol/L (8-16); Aspartate Amino Transferase 51 U/L (17-59); Blood Urea Nitrogen 22 mg/dL (9-20); Calcium 8.6 mg/dL (8.4-10.2); Carbon Dioxide 22 mmol/L (22-30); Chloride 103 mmol/L (98-107); Estimated CRCL calculation 82 ml/min; Estimated Glomerular Filt Rate > 60; Glucose 90 mg/dL (65-110); Potassium 3.9 mmol/L (3.4-5.0); Sodium 135 mmol/L (137-145)
[2022-01-29 18:28] LABS: Troponin I 0.023 ng/mL (0.000-0.034)
[2022-01-29 18:38] LABS: D Dimer 2.14 ug/mL (<0.48)
[2022-01-29 18:47] LABS: Anisocytosis 1+ (NORMAL); Burr Cells 1+ (NORMAL); Ovalocytes 1+ (NORMAL); Platelet Estimate Adequate (Adequate); Schistocytes None Seen (NORMAL); Target Cells 1+ (NORMAL)
[2022-01-29 20:52] LABS: NT Pro B Type Natriuretic Pept 8330 pg/mL (5-100); Troponin I 0.025 ng/mL (0.000-0.034)
[2022-01-29] MEDS: FUROSEMIDE INJ 40 MG/4 ML VIAL IV PUSH (21:14)
--- NOTE | 2022-01-29 21:47 | PM.IMHP ---
H&P: HPI History of Present Illness Date/Time: 01/29/22 21:47 Chief Complaint: 61 years old male with past medical history of systolic CHF ejection fraction 25-30% hypertension hyperlipidemia pulmonary hypertension diabetes presented to the hospital with chest pain on the right side dull in nature improved with bowel movement lasted around 1 hour not related to activities patient also complains of shortness of breath at the ER patient did not complain of shortness of breath to the ER provider but complaint of shortness of breath to me patient is poor historian also patient complained of lower extremity swelling patient stated that he is not compliant with his medication patient was recently admitted to the hospital for CHF exacerbation last November CT scan of the chest was done during this admission to rule out PE showed severe right ventricular heart failure stigmata no evidence of PE BNP was significantly elevated D-dimer was elevated patient was admitted to the hospital for further evaluation and treatment of CHF exacerbation In the past patient has positive drug screen for cocaine Review of Systems Review of Systems: Twelve system review was done negative except above PMFSH Past Medical History Medical History CHF (congestive heart failure) Family History Family History Father Drowning Other Unknown family medical history Social History Social History Smoking status: Never smoker Second hand tobacco smoke exposure: No Alcohol intake: never Substance use: current Substance use type: marijuana and crack/cocaine Spiritual care concerns: No Meds Home Medications and Allergies Home Medications Medication Instructions Recorded Confirmed Type aspirin 81 mg tablet,delayed 81 mg PO DAILY 12/05/21 12/05/21 History release atorvastatin 40 mg tablet 40 mg PO HS 12/05/21 12/05/21 History carvedilol 25 mg tablet 25 mg PO BID 12/05/21 12/05/21 History empagliflozin 10 mg tablet 10 mg PO DAILY 12/05/21 12/05/21 History (Jardiance) furosemide 20 mg tablet 40 mg PO DAILY 12/05/21 12/05/21 History spironolactone 25 mg tablet 25 mg PO DAILY 12/05/21 12/05/21 History ferrous sulfate 325 mg (65 mg 324 mg PO BIDWM #60 tabs 12/07/21 Rx iron) tablet sacubitril 24 mg-valsartan 26 mg 1 tab PO Q12HR #60 tabs 12/07/21 Rx tablet (Entresto) Allergies Allergy/AdvReac Type Severity Reaction Status Date / Time No Known Allergies Allergy Verified 12/05/21 19:38 Vital Signs Vital Signs - 24 hr 01/29/22 16:30 01/29/22 16:58 01/29/22 17:00 Temperature 97.9 F Pulse Rate 88 80 Respiratory Rate 20 19 Blood Pressure 133/109 H 128/99 H Pulse Oximetry 100 100 98 Oxygen Delivery Room Air Exam Narrative: GENERAL: Complains of pain. HEAD: Normocephalic, atraumatic. NECK: Supple. No adenopathy, no masses. RESPIRATORY: Positive bilateral crackles. CARDIOVASCULAR: Regular rate and rhythm without murmurs, rubs, or gallops. Peripheral pulses 2+ and equal bilaterally. ABDOMINAL: Soft, nontender, nondistended, no hepatosplenomegaly. Normoactive BS. MUSCULOSKELETAL: Positive bilateral lower extremity edema. SKIN: Warm, dry, normal color. No rashes. NEURO: Alert oriented moves all extremities. PSYCHIATRIC: Appropriate mood and affect. Normal interaction. H&P: Results Labs Labs: Short CBC 01/29/22 Range/Units 17:51 WBC 5.2 (4.5-10.0) K/mm3 Hgb 12.5 L (14.0-18.0) g/dL Hct 40.0 L (42.0-52.0) % Plt Count 166 (150-375) k/mm3 BMP 01/29/22 17:51 Sodium 135 L Potassium 3.9 Chloride 103 Carbon Dioxide 22 BUN 22 H Creatinine 0.90 Glucose 90 Calcium 8.6 Cardiac Enzymes 01/29/22 01/29/22 Range/Units 17:51 20:22 Troponin I 0.023 0.025 (0.000-0.034) ng/mL Liver Function
[2022-01-29 23:28] LABS: Add Urine Microscopic? NO; Appearance Urine Clear (Clear); Bilirubin Urine Negative (Negative); Blood Urine Negative (Negative); Color Urine Straw (Yellow); Glucose Urine UA Negative (Negative); Ketones Urine Negative (Negative); Leukocyte Esterase Ur Negative LEU/UL (Negative); Nitrate Urine Negative (Negative); Protein Urine Negative (Negative); Specific Grav Ur 1.021 (1.001-1.035); Urobilinogen Urine Negative mg/dL (<2.0)
[2022-01-29 23:33] LABS: Creatine Kinase 316 U/L (55-170); Phosphorus 3.9 mg/dL (2.5-4.5)
--- NOTE | 2022-01-29 23:37 | ADMGEN ---
This patient, Niko Pearson, was admitted to Medical Room 240-01. Patient/family oriented to hospital policies and general routines including ID bracelet, bed and alarms, visiting hours, pain management, procedures, bathroom and other care routines, personal items, smoking policy, room service/diet, and visiting hours. Information on how to activate the Rapid Response Team has been discussed. Patient/Family are encouraged to report perceived risks to care and to ask questions if they do not understand what they are told or what they should do.
[2022-01-29 23:44] LABS: Barbiturate Screen Urine Negative (Negative); Benzodiazepines Screen Urine Negative (Negative)
[2022-01-29 23:52] LABS: Glucose Point of Care 81 mg/dl (65-105)
[2022-01-30] VITALS (11 sets, daily range): BP systolic 100–119; BP diastolic 75–78; PULSE 74–104; RESP 12–18; TEMP 35.7–36.2; O2SAT 100
[2022-01-30 00:04] LABS: Amphetamine Screen Urine Negative (Negative); Cannabinoid Screen Urine Positive (Negative); Cocaine Screen Urine Positive (Negative); Methadone Screen Urine Negative (Negative); Opiate Screen Urine Negative (Negative); Phencyclidine Screen Urine Negative (Negative)
[2022-01-30 03:33] LABS: Basophils Percent Auto 0.6 % (0.2-1.2); Eosinophils Percent Auto 0.4 % (0-4.4); Hematocrit 40.9 % (42.0-52.0); Hemoglobin 13.1 g/dL (14.0-18.0); Immature Granulocyte Absolute 0.01 K/mm3 (0.00-0.031); Immature Granulocyte Percent A 0.2 % (0-0.5); Lymphocytes Absolute Auto 2.17 K/mm3 (0.9-3.2); Lymphocytes Percent Auto 40.8 % (18.3-44.2); Mean Corpuscular Hemoglobin 25.9 pg (26-34); Mean Platelet Volume 10.3 fl (7.4-10.4); Monocytes Absolute Auto 0.5 K/mm3 (0.1-0.6); Monocytes Percent Auto 8.6 % (2.6-8.5); Neutrophils Absolute Auto 2.6 K/mm3 (1.3-6.7); Neutrophils Percent Auto 49.4 % (45.5-73.1); Platelet Count Result 164 k/mm3 (150-375); Red Blood Count 5.05 M/mm3 (4.6-6.20); Red Cell Distribution Width 22.3 % (11.5-14.5); White Blood Count 5.3 K/mm3 (4.5-10.0)
[2022-01-30 03:43] LABS: Alanine Aminotransferase 29 U/L (6-50); Albumin Level 3.4 g/dL (3.5-5.1); Alkaline Phosphatase 82 U/L (38-126); Anion Gap 10 mmol/L (8-16); Aspartate Amino Transferase 44 U/L (17-59); Bilirubin,Total 1.1 mg/dL (0.2-1.3); Blood Urea Nitrogen 21 mg/dL (9-20); Calcium 8.4 mg/dL (8.4-10.2); Carbon Dioxide 23 mmol/L (22-30); Chloride 101 mmol/L (98-107); Estimated CRCL calculation 83 ml/min; Estimated Glomerular Filt Rate > 60; Glucose 92 mg/dL (65-110); Potassium 3.8 mmol/L (3.4-5.0); Sodium 134 mmol/L (137-145)
[2022-01-30 03:55] LABS: Acanthocytes 1+ (NORMAL); Macrocytosis 1+ (NORMAL); Platelet Estimate Adequate (Adequate); Troponin I 0.027 ng/mL (0.000-0.034)
[2022-01-30 03:57] LABS: Schistocytes None Seen (NORMAL)
[2022-01-30] MEDS: ASPIRIN 81 MG ENTERIC TABLET PO (08:08)
[2022-01-30] MEDS: carvediloL 25 MG TABLET PO ×2 (08:08→20:50)
[2022-01-30] MEDS: FERROUS SULFATE 324 MG TABLET PO ×2 (08:08→17:14)
[2022-01-30] MEDS: FUROSEMIDE INJ 40 MG/4 ML VIAL IV PUSH ×2 (08:08→17:15)
[2022-01-30] MEDS: ENOXAPARIN 40 MG/0.4 ML SYRINGE SUB-Q (08:08)
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
[2022-01-30 09:46] LABS: Glucose Point of Care 145 mg/dl (65-105)
--- NOTE | 2022-01-30 12:00 | PC.NURSE ---
Pt moved to room 245 for closer observation.
--- NOTE | 2022-01-30 12:00 | PC.NURSE ---
Nurse Angel Maciel in room responding to bed alarm, pt laying in bed on right side facing door when staff arrived, staff attended to bed alarm while staff was at end of the bed pt flung his body onto the floor. Pt flopped on the floor until was able to flip himself onto his abdomen. Pt then stopped with his sporadic but voluntary movements. Dr. Mcclendon was called and came to see pt. Pt has no visible injuries observed, denies pain, no visible deformities observed. Pt able to get into sitting position with minimal assist. Dr. Mcclendon reports okay to get pt up and ordered stat CT of head. Staff times three assisted pt into standing position and patient placed in bed.
[2022-01-30] MEDS: OLANZapine 10 MG INJ VIAL 5 MG IM (12:03)
--- NOTE | 2022-01-30 12:05 | ECG_ITS ---
Measurements Intervals [place] Rate: 87 P: 73 IL: 152 QRS: 23 QRSD: 93 T: 120 QT: 428 QTc: 515 Interpretive Statements SINUS RHYTHM LOW QRS VOLTAGE IN EXTREMITY LEADS [QRS DEFLECTION < 0.5 mV IN LIMB LEADS] POSSIBLE LEFT ATRIAL ENLARGEMENT PROLONGED QT INTERVAL COMPARED TO ECG 01/29/2022 16:33:24 PROLONGED QT INTERVAL NOW PRESENT Electronically Signed On 01-30-2022 15:32:19 CDT by Hema Amaya M.D.
--- NOTE | 2022-01-30 12:15 | PC.NURSE ---
Pt bed alarm activated staff entered room to pt up on in bed on knee legs, flailing attempting to throw himself out of the bed onto floor again, pt was stopped from ended on the floor due to bed rails, pt feet and legs on floor, but more than 50% of his body was in bed, pt is uncontrollable at this time, staff attempting to keep pt from ending up on floor, pt yelling and out of control, socorro kumar was called. Dr. Mcclendon was notified orders received. After approximately 2 minutes pt calmed and was able to rest in bed. Dr. Mcclendon in room and assessed patient.
[2022-01-30 12:26] LABS: Glucose Point of Care 119 mg/dl (65-105)
[2022-01-30 13:06] LABS: Troponin I 0.021 ng/mL (0.000-0.034)
--- NOTE | 2022-01-30 14:55 | PM.IMPN ---
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 (2) CHF (congestive heart failure): Code(s): I50.9 - Heart failure, unspecified Status: Acute Assessment and Plan: Last echo was December 10 showed ejection fraction 25% pulmonary hypertension moderate mitral regurgitation CT scan shows severe right ventricular heart failure Most likely patient has acute on top of chronic combined systolic heart failure Start IV diuresis Cardiology evaluation (3) History of diabetes mellitus: Code(s): Z86.39 - Personal history of other endocrine, nutritional and metabolic disease Status: Acute Assessment and Plan: Insulin sliding scale (4) Hyperlipidemia: Code(s): E78.5 - Hyperlipidemia, unspecified Status: Acute Assessment and Plan: Resume statin once home medication reconciled (5) Non compliance w medication regimen: Code(s): Z91.14 - Patient's other noncompliance with medication regimen Status: Acute Assessment and Plan: Counseling was given (6) Chest pain: Code(s): R07.9 - Chest pain, unspecified Status: Acute Assessment and Plan: Most likely related to CHF exacerbation Rule out ACS Serial cardiac marker ECG cardiology consult (7) Elevated d-dimer: Code(s): R79.89 - Other specified abnormal findings of blood chemistry Status: Acute Assessment and Plan: Will get Doppler of lower extremities most likely related to CHF CT scan of the chest was negative for PE Subjective Date/time seen: 01/30/22 14:55 Chief Complaint: HPI:61 years old male with past medical history of systolic CHF ejection fraction 25-30% hypertension hyperlipidemia pulmonary hypertension diabetes presented to the hospital with chest pain on the right side dull in nature improved with bowel movement lasted around 1 hour not related to activities patient also complains of shortness of breath at the ER patient did not complain of shortness of breath to the ER provider but complaint of shortness of breath to me patient is poor historian also patient complained of lower extremity swelling patient stated that he is not compliant with his medication patient was recently admitted to the hospital for CHF exacerbation last November CT scan of the chest was done during this admission to rule out PE showed severe right ventricular heart failure stigmata no evidence of PE BNP was significantly elevated D-dimer was elevated patient was admitted to the hospital for further evaluation and treatment. 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
[2022-01-30 15:34] LABS: EDCOVIDSCREEN Negative (Negative)
[2022-01-30 18:24] LABS: Glucose Point of Care 128 mg/dl (65-105)
--- NOTE | 2022-01-30 18:44 | PC.NURSE ---
This patient, Niko Pearson, was received from [facility] on 01/30/22 at 1841. Report received from Angel GARCIA. Patient/family oriented to unit policies and routines
[2022-01-30] MEDS: ATORVASTATIN 40 MG TABLET PO (20:51)
[2022-01-31] VITALS (17 sets, daily range): BP systolic 98–114; BP diastolic 64–81; PULSE 62–90; RESP 14–24; TEMP 35.9–36.6; O2SAT 96–100
[2022-01-31 06:04] LABS: Basophils Percent Auto 0.2 % (0.2-1.2); Hematocrit 40.7 % (42.0-52.0); Immature Granulocyte Absolute 0.01 K/mm3 (0.00-0.031); Immature Granulocyte Percent A 0.2 % (0-0.5); Immature Platelet Fraction Pct 6.2 % (0.9-11.2); Lymphocytes Absolute Auto 1.25 K/mm3 (0.9-3.2); Lymphocytes Percent Auto 30.9 % (18.3-44.2); Mean Corpuscular HGB Conc 31.9 g/dl (32-36); Mean Corpuscular Hemoglobin 26.1 pg (26-34); Mean Corpuscular Volume 81.6 fl (80-100); Mean Platelet Volume 11.2 fl (7.4-10.4); Monocytes Absolute Auto 0.3 K/mm3 (0.1-0.6); Monocytes Percent Auto 6.7 % (2.6-8.5); Neutrophils Absolute Auto 2.5 K/mm3 (1.3-6.7); Platelet Count Result 161 k/mm3 (150-375); Red Blood Count 4.99 M/mm3 (4.6-6.20); Red Cell Distribution Width 22.2 % (11.5-14.5); White Blood Count 4.1 K/mm3 (4.5-10.0)
[2022-01-31 06:24] LABS: Sodium 131 mmol/L (137-145)
[2022-01-31 06:38] LABS: Alanine Aminotransferase 29 U/L (6-50); Albumin Level 3.2 g/dL (3.5-5.1); Alkaline Phosphatase 82 U/L (38-126); Anion Gap 9 mmol/L (8-16); Aspartate Amino Transferase 45 U/L (17-59); Bilirubin,Total 1.2 mg/dL (0.2-1.3); Blood Urea Nitrogen 28 mg/dL (9-20); Calcium 8.1 mg/dL (8.4-10.2); Carbon Dioxide 20 mmol/L (22-30); Chloride 102 mmol/L (98-107); Estimated CRCL calculation 69 ml/min; Estimated Glomerular Filt Rate > 60; Glucose 106 mg/dL (65-110); Potassium 4.3 mmol/L (3.4-5.0)
[2022-01-31] MEDS: ASPIRIN 81 MG ENTERIC TABLET PO (09:09)
[2022-01-31] MEDS: ENOXAPARIN 40 MG/0.4 ML SYRINGE SUB-Q (09:10)
[2022-01-31] MEDS: carvediloL 25 MG TABLET PO ×2 (09:10→22:06)
[2022-01-31] MEDS: FERROUS SULFATE 324 MG TABLET PO ×2 (09:11→22:06)
--- NOTE | 2022-01-31 11:54 | PM.PNCARD ---
Progress Note: A&P Assessment and Plan (1) Acute on chronic combined systolic and diastolic heart failure: Code(s): I50.43 - Acute on chronic combined systolic (congestive) and diastolic (congestive) heart failure Status: Acute (2) Substance abuse: Code(s): F19.10 - Other psychoactive substance abuse, uncomplicated Status: Acute (3) Homelessness: Code(s): Z59.00 - Homelessness unspecified Status: Acute (4) Dilated cardiomyopathy: Code(s): I42.0 - Dilated cardiomyopathy Status: Acute (5) Non compliance w medication regimen: Code(s): Z91.14 - Patient's other noncompliance with medication regimen Status: Acute (6) Hyperlipidemia: Code(s): E78.5 - Hyperlipidemia, unspecified Status: Acute (7) History of diabetes mellitus: Code(s): Z86.39 - Personal history of other endocrine, nutritional and metabolic disease Status: Acute (8) Cocaine abuse: Code(s): F14.10 - Cocaine abuse, uncomplicated Status: Acute Plan Continue ASA, statin, Coreg, Losartan. Transition IV Lasix to oral Lasix. Subjective Date/time seen: 01/31/22 11:54 Interval history: CC / Reason for visit: Heart failure follow-up No acute events overnight. Patient reports he has occasional shortness of breath. No chest pain. No lower extremity edema. Review of Systems Review of Systems: All systems reviewed & are unremarkable except as noted in HPI and below (subjective) Exam Const: General: comfortable and no acute distress Eyes: General: appearance normal, both eyes and all related structures Neck: Neck: no JVD Resp: Effort & Inspection: normal respiratory effort Auscultation: clear to auscultation bilaterally Cardio: Rate: regular rate Rhythm: regular rhythm Skin: General skin exam: normal color Neuro: Speech: normal speech Extrem: General: no edema Psych: Mental Status: mental status grossly normal Objective Data Vital Signs Vital Signs: Vital Signs - 24 hr 01/30/22 12:00 01/30/22 14:24 01/30/22 16:00 Temperature 35.7 C L Pulse Rate 76 75 79 Respiratory Rate 12 Blood Pressure 100/75 Pulse Oximetry 100 Oxygen Delivery 01/30/22 20:50 01/30/22 20:00 01/31/22 00:00 Temperature 36.2 C L Pulse Rate 80 78 Respiratory Rate 14 Blood Pressure 114/64 Pulse Oximetry 100 Oxygen Delivery Room Air 01/31/22 00:00 01/30/22 20:00 01/31/22 00:00 Temperature Pulse Rate 75 65 Respiratory Rate Blood Pressure Pulse Oximetry Oxygen Delivery Room Air 01/31/22 02:00 01/30/22 22:00 01/31/22 04:00 Temperature Pulse Rate 75 74 Respiratory Rate Blood Pressure Pulse Oximetry Oxygen Delivery Room Air 01/31/22 04:00 01/31/22 06:00 01/31/22 08:07 Temperature 36.1 C L Pulse Rate 70 69 70 Respiratory Rate 22 H Blood Pressure 112/78 Pulse Oximetry 100 Oxygen Delivery 01/31/22 09:10 Temperature Pulse Rate 79 Respiratory Rate Blood Pressure Pulse Oximetry Oxygen Delivery Intake/Output Intake/Output: Intake & Output 01/28/22 01/29/22 01/30/22 01/31/22 23:59 23:59 23:59 23:59 Intake Total 1820 240 Output Total 1700 301 Balance 120 -61 Meds/Results Medications: Active Medications Generic Name Dose Route Start Last Admin Trade Name Freq PRN Reason Stop Dose Admin Acetaminophen 650 mg 01/29/22 21:42 Acetaminophen 325 Mg Tablet PO Q6H PRN Pain Rated 1-3 Hydrocodone Bitart/Acetaminophen 1 tab 01/29/22 21:42 Hydrocodone/Acetaminophen (*Crx) 5-325 Mg Tablet PO Q6H PRN Pain Rated 4-6 Albuterol 2.5 mg 01/29/22 21:42 Albuterol Sulfate Neb 2.5 Mg/3 Ml Inh INHALATION Q6HRT PRN Shortness Of Breath Aspirin 81 mg 01/30/22 09:00 01/31/22 09:09 Aspirin 81 Mg Enteric Tablet PO 81 mg DAILY LOVE Administration Atorvastatin Calcium 40 mg 01/30/22 21:00 01/30/22 20:51 Atorvas
[2022-01-31] MEDS: FUROSEMIDE 40 MG TABLET PO (12:56)
[2022-01-31] MEDS: LOSARTAN POTASSIUM 25 MG TABLET PO (12:56)
--- NOTE | 2022-01-31 15:54 | PM.IMPN ---
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 will possibly discharge the patient tomorrow. will have a PT OT evaluate the patient. (2) CHF (congestive heart failure): Code(s): I50.9 - Heart failure, unspecified Status: Acute Assessment and Plan: Last echo was December 10 showed ejection fraction 25% pulmonary hypertension moderate mitral regurgitation CT scan shows severe right ventricular heart failure Most likely patient has acute on top of chronic combined systolic heart failure Start IV diuresis Cardiology evaluation (3) History of diabetes mellitus: Code(s): Z86.39 - Personal history of other endocrine, nutritional and metabolic disease Status: Acute Assessment and Plan: Insulin sliding scale (4) Hyperlipidemia: Code(s): E78.5 - Hyperlipidemia, unspecified Status: Acute Assessment and Plan: Resume statin once home medication reconciled (5) Non compliance w medication regimen: Code(s): Z91.14 - Patient's other noncompliance with medication regimen Status: Acute Assessment and Plan: Counseling was given (6) Chest pain: Code(s): R07.9 - Chest pain, unspecified Status: Acute Assessment and Plan: Most likely related to CHF exacerbation Rule out ACS Serial cardiac marker ECG cardiology consult (7) Elevated d-dimer: Code(s): R79.89 - Other specified abnormal findings of blood chemistry Status: Acute Assessment and Plan: Will get Doppler of lower extremities most likely related to CHF CT scan of the chest was negative for PE Subjective Date/time seen: 01/31/22 15:54 01/31/2022 interval history: 61-year-old male with history cocaine and cannabis abuse and cardiomyopathy with ejection fraction 10-30%, patient had refused LifeVest in the past and is not compliant with his medical treatment, presented to emergency department with complaint of chest pain, seen by Cardiology, his 3 sets of cardiac enzymes are negative there are no acute changes on 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 will possibly discharge the patient tomorrow. will have a PT OT evaluate the patient. Exam Narrative: Patient is comfortable, NAD HEENT: eyes are clear and none icteric LUNGS:CTA HEART: RR S1S2 ABD: BS+, Soft and nontender Lower extremities: no edema SKIN: nonjaundiced Neuro: grossly intact. Objective Data Vital Signs Vital Signs: Vital Signs - 24 hr 01/30/22 16:00 01/30/22 20:50 01/30/22 20:00 Temperature Pulse Rate 79 80
[2022-01-31 16:31] LABS: Glucose Point of Care 164 mg/dl (65-105)
[2022-01-31 17:06] LABS: Glucose Point of Care 121 mg/dl (65-105)
[2022-01-31] MEDS: MORPHINE SULFATE (*CRX) 2 MG/ML INJ IV PUSH (22:04)
[2022-01-31] MEDS: ATORVASTATIN 40 MG TABLET PO (22:06)
[2022-02-01] VITALS (8 sets, daily range): BP systolic 81–112; BP diastolic 69–96; PULSE 52–79; RESP 16–22; TEMP 35.3–36.4; O2SAT 94–100
[2022-02-01 06:58] LABS: Basophils Percent Auto 0.2 % (0.2-1.2); Hematocrit 47.4 % (42.0-52.0); Hemoglobin 14.6 g/dL (14.0-18.0); Immature Granulocyte Absolute 0.02 K/mm3 (0.00-0.031); Immature Granulocyte Percent A 0.4 % (0-0.5); Immature Platelet Fraction Pct 8.5 % (0.9-11.2); Lymphocytes Absolute Auto 1.61 K/mm3 (0.9-3.2); Lymphocytes Percent Auto 33.3 % (18.3-44.2); Mean Corpuscular HGB Conc 30.8 g/dl (32-36); Mean Corpuscular Hemoglobin 26.4 pg (26-34); Mean Corpuscular Volume 85.7 fl (80-100); Mean Platelet Volume 11.4 fl (7.4-10.4); Monocytes Absolute Auto 0.4 K/mm3 (0.1-0.6); Monocytes Percent Auto 7.2 % (2.6-8.5); Neutrophils Absolute Auto 2.8 K/mm3 (1.3-6.7); Neutrophils Percent Auto 58.9 % (45.5-73.1); Nucleated Red Blood Cells Perc 0.4 % (0.0-0.2); Platelet Count Result 154 k/mm3 (150-375); Red Blood Count 5.53 M/mm3 (4.6-6.20); Red Cell Distribution Width 22.7 % (11.5-14.5); White Blood Count 4.8 K/mm3 (4.5-10.0)
[2022-02-01 07:20] LABS: Alanine Aminotransferase 31 U/L (6-50); Albumin Level 3.6 g/dL (3.5-5.1); Alkaline Phosphatase 97 U/L (38-126); Anion Gap 11 mmol/L (8-16); Aspartate Amino Transferase 46 U/L (17-59); Bilirubin,Total 1.2 mg/dL (0.2-1.3); Blood Urea Nitrogen 39 mg/dL (9-20); Calcium 8.3 mg/dL (8.4-10.2); Carbon Dioxide 22 mmol/L (22-30); Chloride 100 mmol/L (98-107); Estimated CRCL calculation 55 ml/min; Estimated Glomerular Filt Rate > 60; Glucose 116 mg/dL (65-110); Potassium 4.9 mmol/L (3.4-5.0); Sodium 133 mmol/L (137-145)
[2022-02-01 07:29] LABS: Anisocytosis 1+ (NORMAL); Platelet Estimate Adequate (Adequate)
[2022-02-01 07:30] LABS: Ovalocytes 1+ (NORMAL); Poikilocytosis 1+ (NORMAL)
[2022-02-01 07:31] LABS: Acanthocytes 1+ (NORMAL)
[2022-02-01 07:35] LABS: Schistocytes None Seen (NORMAL)
[2022-02-01 07:51] LABS: Glucose Point of Care 101 mg/dl (65-105)
[2022-02-01] MEDS: LOSARTAN POTASSIUM 25 MG TABLET PO (08:25)
[2022-02-01] MEDS: ENOXAPARIN 40 MG/0.4 ML SYRINGE SUB-Q (08:25)
[2022-02-01] MEDS: ASPIRIN 81 MG ENTERIC TABLET PO (08:25)
[2022-02-01] MEDS: FERROUS SULFATE 324 MG TABLET PO ×2 (08:26→16:35)
--- NOTE | 2022-02-01 08:51 | PM.PNCARD ---
Progress Note: A&P Assessment and Plan (1) Acute on chronic combined systolic and diastolic heart failure: Code(s): I50.43 - Acute on chronic combined systolic (congestive) and diastolic (congestive) heart failure Status: Acute Assessment and Plan: Mild acute on chronic CHF with some edema, mild elevation of proBNP? Improved with IV diuresis Continue furosemide 40mg p.o. daily Discharge today? Cardiology will signs off please do not hesitate to contact us with any questions (2) Substance abuse: Code(s): F19.10 - Other psychoactive substance abuse, uncomplicated Status: Acute Assessment and Plan: Long history of substance abuse, drug screen positive for cocaine this admission as well as prior admissions. I reiterated the deleterious affects of drugs on his heart and health and strongly advised that he stop using drugs. ?Admits he is a drug addict, knows he should stop using drugs. (3) Homelessness: Code(s): Z59.00 - Homelessness unspecified Status: Acute (4) Dilated cardiomyopathy: Code(s): I42.0 - Dilated cardiomyopathy Status: Acute Assessment and Plan: EF runs anywhere between 10 and 30% on multiple echoes this year. Attempt to continue guideline directed medical therapy w/ carvedilol, atorvastatin ASA, etc. Was discharged on Entresto which is ideal, but unlikely a patient can afford this since he is uninsured Resume losartan instead (5) Non compliance w medication regimen: Code(s): Z91.14 - Patient's other noncompliance with medication regimen Status: Acute (6) Hyperlipidemia: Code(s): E78.5 - Hyperlipidemia, unspecified Status: Acute (7) History of diabetes mellitus: Code(s): Z86.39 - Personal history of other endocrine, nutritional and metabolic disease Status: Acute (8) Cocaine abuse: Code(s): F14.10 - Cocaine abuse, uncomplicated Status: Acute Subjective Date/time seen: 02/01/22 08:51 Cardiology follow up for CHF Feeling well today. Denies shortness of breath, swelling. No chest pain. Has concerns about finding a primary care provider when he leaves the hospital. Apparently he is moving away from this area. Review of Systems Review of Systems: All systems reviewed & are unremarkable except as noted in HPI and below (subjective) Constitutional: Constitutional: Denies fever(s) Cardiovascular: Cardiovascular: Reports chest pain, Reports pedal edema, Reports leg edema, Denies lightheadedness, Reports dyspnea and Reports dyspnea on exertion Respiratory: Respiratory: Denies chest congestion, Reports cough (Chronic), Reports dyspnea and Reports dyspnea on exertion Gastrointestinal: Gastrointestinal: Denies abdominal pain and Denies hematochezia Genitourinary: Genitourinary: Denies hematuria Musculoskeletal: Musculoskeletal: Reports no additional musculoskeletal complaints Integumentary/Breasts: Skin/Breast: Reports system reviewed and no additional complaints, except as docu Neurologic: Reports system reviewed and no additional complaints, except as documented, Denies behavioral changes and Denies confusion Psychiatric: Psychiatric: Denies behavioral changes and Denies confusion Exam Const: General: cooperative, comfortable and no acute distress; No confusion Orientation/consciousness: oriented to person, patient oriented x3 and No confusion HENMT: Mouth: Yes moist mucous membranes Eyes: General: appearance normal, both eyes and all related structures EOM: EOMs intact bilaterally Neck: Neck: supple and no JVD Thyroid: thyroid normal Carotids: no bruits Resp: Effort & Inspection: normal respiratory effort Auscultation: clear to auscultation bilaterally Cardio: Rate: regular rate Rhythm: regular rhythm Heart sounds: Murmur heart sound present (2/6 JASMEET at the left lower sternal border) GI: Inspection: normal to inspection Other: Soft and nontender, no organomegaly
[2022-02-01 11:34] LABS: Glucose Point of Care 143 mg/dl (65-105)
[2022-02-01] MEDS: FUROSEMIDE 40 MG TABLET PO (12:00)
--- NOTE | 2022-02-01 14:24 | PM.IMPN ---
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 will possibly discharge the patient tomorrow. will have a PT OT evaluate the patient. (2) CHF (congestive heart failure): Code(s): I50.9 - Heart failure, unspecified Status: Acute Assessment and Plan: Last echo was December 10 showed ejection fraction 25% pulmonary hypertension moderate mitral regurgitation CT scan shows severe right ventricular heart failure Most likely patient has acute on top of chronic combined systolic heart failure Start IV diuresis Cardiology evaluation (3) History of diabetes mellitus: Code(s): Z86.39 - Personal history of other endocrine, nutritional and metabolic disease Status: Acute Assessment and Plan: Insulin sliding scale (4) Hyperlipidemia: Code(s): E78.5 - Hyperlipidemia, unspecified Status: Acute Assessment and Plan: Resume statin once home medication reconciled (5) Non compliance w medication regimen: Code(s): Z91.14 - Patient's other noncompliance with medication regimen Status: Acute Assessment and Plan: Counseling was given (6) Chest pain: Code(s): R07.9 - Chest pain, unspecified Status: Acute Assessment and Plan: Most likely related to CHF exacerbation Rule out ACS Serial cardiac marker ECG cardiology consult (7) Elevated d-dimer: Code(s): R79.89 - Other specified abnormal findings of blood chemistry Status: Acute Assessment and Plan: Will get Doppler of lower extremities most likely related to CHF CT scan of the chest was negative for PE Subjective Date/time seen: 02/01/22 14:24 02/01/2022 interval history: 61-year-old male with history cocaine and cannabis abuse and cardiomyopathy with ejection fraction 10-30%, patient had refused LifeVest in the past and is not compliant with his medical treatment, presented to emergency department with complaint of chest pain, seen by Cardiology, his 3 sets of cardiac enzymes are negative there are no acute changes on 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 will possibly discharge the patient tomorrow. will have a PT OT evaluate the patient. Review of Systems Constitutional: Constitutional: Denies fever(s) Exam Narrative: Patient is comfortable, NAD HEENT: eyes are clear and none icteric LUNGS:CTA HEART: RR S1S2 ABD: BS+, Soft and nontender Lower extremities: no edema SKIN: nonjaundiced Neuro: grossly intact. Objective
[2022-02-01] MEDS: ATORVASTATIN 40 MG TABLET PO (21:46)
[2022-02-01] MEDS: HYDROcodone/acetaminophen (*CRX) 5-325 MG TABLET 1 TAB PO (21:47)
[2022-02-02] VITALS (7 sets, daily range): BP systolic 97–117; BP diastolic 68–96; PULSE 54–90; RESP 16–20; TEMP 35.8–36.8; O2SAT 96–100
[2022-02-02 07:55] LABS: Glucose Point of Care 99 mg/dl (65-105)
[2022-02-02] MEDS: ENOXAPARIN 40 MG/0.4 ML SYRINGE SUB-Q (12:56)
[2022-02-02] MEDS: FERROUS SULFATE 324 MG TABLET PO ×2 (12:57→17:08)
[2022-02-02] MEDS: FUROSEMIDE 40 MG TABLET PO (12:57)
[2022-02-02] MEDS: ASPIRIN 81 MG ENTERIC TABLET PO (12:58)
--- NOTE | 2022-02-02 16:25 | PM.IMPN ---
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 will possibly discharge the patient tomorrow his sister will come to pick him up. will have a PT OT evaluate the patient. (2) CHF (congestive heart failure): Code(s): I50.9 - Heart failure, unspecified Status: Acute Assessment and Plan: Last echo was December 10 showed ejection fraction 25% pulmonary hypertension moderate mitral regurgitation CT scan shows severe right ventricular heart failure Most likely patient has acute on top of chronic combined systolic heart failure Start IV diuresis Cardiology evaluation (3) History of diabetes mellitus: Code(s): Z86.39 - Personal history of other endocrine, nutritional and metabolic disease Status: Acute Assessment and Plan: Insulin sliding scale (4) Hyperlipidemia: Code(s): E78.5 - Hyperlipidemia, unspecified Status: Acute Assessment and Plan: Resume statin once home medication reconciled (5) Non compliance w medication regimen: Code(s): Z91.14 - Patient's other noncompliance with medication regimen Status: Acute Assessment and Plan: Counseling was given (6) Chest pain: Code(s): R07.9 - Chest pain, unspecified Status: Acute Assessment and Plan: Most likely related to CHF exacerbation Rule out ACS Serial cardiac marker ECG cardiology consult (7) Elevated d-dimer: Code(s): R79.89 - Other specified abnormal findings of blood chemistry Status: Acute Assessment and Plan: Will get Doppler of lower extremities most likely related to CHF CT scan of the chest was negative for PE Subjective Date/time seen: 02/02/22 16:25 02/02/2022 interval history: 61-year-old male with history cocaine and cannabis abuse and cardiomyopathy with ejection fraction 10-30%, patient had refused LifeVest in the past and is not compliant with his medical treatment, presented to emergency department with complaint of chest pain, seen by Cardiology, his 3 sets of cardiac enzymes are negative there are 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 will possibly discharge the patient tomorrow his sister will come to pick him up. will have a PT OT evaluate the patient. Review of Systems Constitutional: Constitutional: Denies fever(s) Exam Narrative: Patient is comfortable, NAD HEENT: eyes are clear and none i
[2022-02-02] MEDS: ATORVASTATIN 40 MG TABLET PO (20:20)
[2022-02-03] VITALS: PULSE 77
[2022-02-03] MEDS: HYDROcodone/acetaminophen (*CRX) 5-325 MG TABLET 1 TAB PO (01:08)
[2022-02-03 04:00] VITALS: BP 109/88; PULSE 73; PULSE 74; RESP 17; TEMP 36.8; O2SAT 98
[2022-02-03 08:00] VITALS: BP 108/87; PULSE 77; PULSE 80; RESP 20; TEMP 35.9; O2SAT 100
[2022-02-03] MEDS: FERROUS SULFATE 324 MG TABLET PO (09:31)
[2022-02-03] MEDS: FUROSEMIDE 40 MG TABLET PO (09:31)
[2022-02-03] MEDS: LOSARTAN POTASSIUM 25 MG TABLET PO (09:31)
[2022-02-03] MEDS: ENOXAPARIN 40 MG/0.4 ML SYRINGE SUB-Q (09:31)
[2022-02-03] MEDS: ASPIRIN 81 MG ENTERIC TABLET PO (09:31)
--- NOTE | 2022-02-03 10:51 | PM.DS ---
DS: Admitting Diagnosis Discharge Date 02/03/2022 Admitting Diagnosis chest pain DS: Discharge Diagnosis Discharge Diagnosis (1) Cocaine abuse: Code(s): F14.10 - Cocaine abuse, uncomplicated Status: Acute Assessment and Plan: Counseling Pending urine drug screen Discussed with ER provider 02/02/2022 interval history: 61-year-old male with history cocaine and cannabis abuse and cardiomyopathy with ejection fraction 10-30%, patient had refused LifeVest in the past and is not compliant with his medical treatment, presented to emergency department with complaint of chest pain, seen by Cardiology, his 3 sets of cardiac enzymes are negative there are no acute changes on EKG 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 will possibly discharge the patient tomorrow his sister will come to pick him up. will have a PT OT evaluate the patient. (2) CHF (congestive heart failure): Code(s): I50.9 - Heart failure, unspecified Status: Acute Assessment and Plan: Last echo was December 10 showed ejection fraction 25% pulmonary hypertension moderate mitral regurgitation CT scan shows severe right ventricular heart failure Most likely patient has acute on top of chronic combined systolic heart failure Start IV diuresis Cardiology evaluation (3) History of diabetes mellitus: Code(s): Z86.39 - Personal history of other endocrine, nutritional and metabolic disease Status: Acute Assessment and Plan: Insulin sliding scale (4) Hyperlipidemia: Code(s): E78.5 - Hyperlipidemia, unspecified Status: Acute Assessment and Plan: Resume statin once home medication reconciled (5) Non compliance w medication regimen: Code(s): Z91.14 - Patient's other noncompliance with medication regimen Status: Acute Assessment and Plan: Counseling was given (6) Chest pain: Code(s): R07.9 - Chest pain, unspecified Status: Acute Assessment and Plan: Most likely related to CHF exacerbation Rule out ACS Serial cardiac marker ECG cardiology consult (7) Elevated d-dimer: Code(s): R79.89 - Other specified abnormal findings of blood chemistry Status: Acute Assessment and Plan: Will get Doppler of lower extremities most likely related to CHF CT scan of the chest was negative for PE DS: Summary Hospital Course Reason for hospitalization: Chief Complaint: 61 years old male with past medical history of systolic CHF ejection fraction 25-30% hypertension hyperlipidemia pulmonary hypertension diabetes presented to the hospital with chest pain on the right side dull in nature improved with bowel movement lasted around 1 hour not related to activities patient also complains of shortness of breath at the ER patient did not complain of shortness of breath to the ER provider but complaint of shortness of breath to me patient is poor historian also patient complained of lower extremity swelling patient stated that he is not compliant with his medication patient was recently admitted to the hospital for CHF exacerbation last November CT scan of the chest was done during this admission to rule out PE showed severe right ventricular heart failure stigmata no evidence of PE BNP was significantly elevated D-dimer was elevated patient was admitted to the hospital for further evaluation and treatment of CHF exacerbation In the past patient has positive drug screen for cocaine Hospital Course: ?61-year-old A
== END 2022-02-03 11:15 | disposition home or self-care (01) | DRG 194 ==
LOC: ANHED 21:36 → ANH2MED 23:23 → ANHIMU 01-30 18:24 → ANH3MEDSUR 01-31 22:01
PROVIDERS: Admitting Provider Internal Medicine; Emergency Provider Nurse Practitioner Family; Visit Provider Family Medicine
DX: I11.0 Hypertensive heart disease with heart failure (principal); I42.0 Dilated cardiomyopathy; I50.43 Acute on chronic combined systolic (congestive) and diastolic (congestive) heart failure; E78.5 Hyperlipidemia, unspecified; E11.9 Type 2 diabetes mellitus without complications; R00.1 Bradycardia, unspecified; R79.89 Other specified abnormal findings of blood chemistry; F14.10 Cocaine abuse, uncomplicated; F12.10 Cannabis abuse, uncomplicated; Z20.822 Contact with and (suspected) exposure to COVID-19; Z91.14 Patient's other noncompliance with medication regimen; Z79.82 Long term (current) use of aspirin; Z59.00 Homelessness unspecified; Z79.84 Long term (current) use of oral hypoglycemic drugs
CPT/HCPCS: 36415; 70450; 71046; 71275; 80053; 80307; 81003; 82550; 82948; 83735; 83880; 84100; 84443; 84484; 85025; 85055; 85380; 87426; 93005; 93970; 96372; 96374; 99285; A9270; C9803; G0378; G0379; J1650; J1940; J2270; Q9967